=== PATIENT | male | born 1995 | race Caucasian/White ===

== ENCOUNTER 2023-01-07 19:00 | Emergency (ER) | payer SELFPAY ==
[2023-01-07 19:17] VITALS: BP 148/90; PULSE 66; RESP 14; TEMP 36.6; O2SAT 99
--- NOTE | 2023-01-07 21:51 | ED.DENTAL ---
HPI - Dental/Oral General Chief complaint: Dental/Oral Stated complaint: dental pain Time Seen by Provider: 01/07/23 21:24 History of Present Illness HPI Narrative: 27-year-old male reports for evaluation for left upper tooth pain x2 years, worsening over the past week. Patient states he has risen teeth may be removed as had an infection to his left upper tooth in the past which is improved with antibiotics. States this tooth extracted because it is cracked and he needs to see a dentist but it does not have a dentist. He denies fever, difficulty swallowing, trismus, nausea or vomiting. He reports facial swelling he says he can not feel from the inside of his mouth. Related Data Allergies Allergy/AdvReac Type Severity Reaction Status Date / Time No Known Allergies Allergy Mild Verified 01/07/23 21:22 Review of Systems Review of Systems: CONSTITUTIONAL: Denies fever, chills, or sweats. EYES: Denies visual changes, redness, or discharge. ENT: See HPI CARDIOVASCULAR: Denies chest pain, palpitations, or edema. RESPIRATORY: Denies cough or dyspnea. GASTROINTESTINAL: Denies abdominal pain, nausea, vomiting, or diarrhea. GENITOURINARY: Denies dysuria or hematuria. SKIN: Denies rash or itching. MUSCULOSKELETAL: Denies back pain, joint pain, or myalgia. NEUROLOGIC: Denies headache, numbness, or weakness. PSYCHIATRIC: Denies anxiety or depression. [facility] Social History Social History Smoking status: Never smoker Alcohol intake: never Exam Narrative: GENERAL: Well-appearing, well-nourished, and in no acute distress. HEAD: Normocephalic, atraumatic. EYES: PERRLA and EOMI. ENT: Nares clear, no rhinorrhea or epistaxis. Mucous membranes moist. Poor dentition throughout. Tenderness to the left upper molar without induration or fluctuation. No periapical abscess. Floor mouth is soft without crepitus. Posterior pharynx without tonsillar hypertrophy or exudates. No facial swelling or erythema. No trismus. Patient tolerating secretions. Bilateral TMs are nieto nonbulging, normal canals. NECK: Supple. CHEST: Clear to auscultation. No respiratory distress. HEART: Regular rate and rhythm. No murmur heard. Normal peripheral pulses. EXTREMITIES: Normal range of motion. No edema. SKIN: Warm, dry, no rash. NEURO: No focal deficits. Alert and oriented x3 Course Vital Signs Vital signs: Vital Signs Temperature 97.9 F 01/07/23 19:17 Pulse Rate 66 01/07/23 19:17 Respiratory Rate 14 01/07/23 19:17 Blood Pressure 148/90 H 01/07/23 19:17 Pulse Oximetry 99 01/07/23 19:17 Oxygen Delivery Room Air 01/07/23 19:17 Temperature 97.9 F 01/07/23 19:17 Pulse Rate 66 01/07/23 19:17 Respiratory Rate 14 01/07/23 19:17 Blood Pressure 148/90 H 01/07/23 19:17 Pulse Oximetry 99 01/07/23 19:17 Oxygen Delivery Room Air 01/07/23 19:17 MDM - Dental/Oral MDM Narrative Medical decision making narrative: 27-year-old male reports for evaluation for dental pain x2 years, worse over the past week. HPI for further history. Vitals significant for periorbital region, was unremarkable. He is afebrile. Exam is significant for the above. He is tolerating his secretions, no trismus, no facial swelling or submandibular swelling. Plan discharge home with p.o. antibiotics. First dose provided here with pain control. Encouraged Tylenol ibuprofen and close follow-up with a dentist. Referrals provided. Strict ED return precautions discussed. He is agreeable to plan verbalized understanding. Discharge in stable condition. Discharge Plan Discharge Clinical Impression: Toothache Patient Disposition: Home, Self-Care Condition: Stable Instructions: Antibiotic Form, Toothache (ED) Additional Instructions: Your evaluated emergency department for dental pain. Her exam is reassuring. I started you on an antibiotic, please take this as directed
[2023-01-07] MEDS: AMOXICILLIN/CLAVULANATE K 875-125 MG TAB 1 TABLET PO (21:56)
[2023-01-07] MEDS: HYDROcodone/acetaminophen (*CRX) 5-325 MG TABLET 1 TAB PO (21:56)
[2023-01-07 22:00] VITALS: BP 120/70; PULSE 70; RESP 20; O2SAT 100
== END 2023-01-07 22:02 | disposition home or self-care (01) ==
LOC: ANHED 21:59
PROVIDERS: Emergency Provider Physician Assistant
DX: K08.89 Other specified disorders of teeth and supporting structures (principal)
CPT/HCPCS: 99283; A9270